=== PATIENT | male | born 1970 | race Caucasian/White ===

== ENCOUNTER 2018-03-19 20:40 | Emergency (ER) | payer SELFPAY ==
[~2018-03-19] VITALS: Ht 185.4 cm; Wt 98.9 kg
[2018-03-19 20:49] VITALS: BP 145/81
== END 2018-03-20 00:06 | disposition home or self-care (01) ==
LOC: ER 20:40
DX: J11.1 Influenza due to unidentified influenza virus with other respiratory manifestations (principal)

== ENCOUNTER 2019-01-12 20:04 | Inpatient (IN) | payer SELFPAY ==
[~2019-01-12] VITALS: Ht 182.9 cm; Wt 95.9 kg
[2019-01-12] MEDS ORDERED: SODIUM CHLORIDE 0.9% 1,000 ML IV ONE (20:19)
[2019-01-12 21:03] LABS: Basophils # (auto) 0.1 uL; Eosinophils # (auto) 0.2 uL; Eosinophils % (auto) 2.1 % (0.0-7.0); Hematocrit 49.7 % (41.0-53.0); Lymphocytes % (auto) 20.3 % (10.0-50.0); Mean Corpuscular Hemoglobin 27.7 pg (28.0-32.0); Mean Corpuscular Hgb Conc. 32.3 g/dL (32.0-36.0); Mean Corpuscular Volume 85.7 fL (80.0-100.0); Monocytes # (auto) 0.8 uL; Monocytes % (auto) 7.7 % (0.0-12.0); Neutrophils # (auto) 6.8 uL; Neutrophils % (auto) 68.9 % (37.0-80.0); Platelet Count (auto) 226 10^3/uL (140-450); White Blood Cell 9.9 10^3/uL (4.4-10.8)
[2019-01-12 21:11] LABS: Albumin 4.6 g/dL (3.4-5.0); Calcium 10.1 mg/dL (8.5-10.1); Potassium 3.9 mmol/L (3.5-5.1)
[2019-01-12 21:21] LABS: BUN/Creatinine Ratio 12.3
[2019-01-12] MEDS ORDERED: InsuLIN REG 1unit/0.01ml Soln (100units/ml) IV ONE (21:30)
[2019-01-12 22:12] LABS: Urine Bacteria NONE SEEN /hpf (None Seen); Urine Blood Negative /uL (Negative); Urine Specific Gravity 1.029 (1.001-1.035); Urine WBC 1 /hpf (0 - 3)
[2019-01-12] MEDS ORDERED: TEMAZEPAM 15 MG CAP PO PRN (22:45)
[2019-01-12] MEDS ORDERED: ONDANSETRON HCL 4 MG/2 ML VIAL IV PRN (22:45)
[2019-01-12] MEDS ORDERED: MORPHINE SULF INJ 2 MG/ML SYRINGE 1ML IV PRN (22:45)
[2019-01-12] MEDS ORDERED: DOCUSATE SOD 100 MG CAP PO PRN (22:45)
[2019-01-12] MEDS ORDERED: ACETAMINOPHEN 500 MG TAB PO PRN (22:45)
[2019-01-12] MEDS ORDERED: amLODIPine BESYLATE 5 MG TAB PO ONE (23:00)
[2019-01-12] MEDS ORDERED: DEXTROSE (50%) 50ML SYRG IV PRN (23:15)
[2019-01-13] MEDS: ACCU-CHEK COMFORT CURVE STRIP VI SCH ×5 (00:10→17:21)
[2019-01-13] MEDS: InsuLIN REG 1unit/0.01ml Soln (100units/ml) SC SCH ×5 (00:10→17:21)
--- NOTE | 2019-01-13 01:35 | NUR ---
Telemetry admit from ER Patient admitted to Telemetry unit and oriented to primary RN, unit, room, bed, and unit policies regarding patient care and visiting hours. Patient now on continuous telemetry monitoring, tele box # [id number] and telemetry reading on arrival to unit is sinus rhythm. Patient weighed by bedscale and encouraged to call if they need something. All questions and concerns addressed, patient verbalized understanding.
[2019-01-13] MEDS ORDERED: KETOROLAC TROMETH 30 MG/ML 1ML VIAL IV ONE (02:15)
[2019-01-13] MEDS ORDERED: AMLO5TAB15 PO (02:27)
[2019-01-13] MEDS ORDERED: SIMV10TA73 PO (02:27)
[2019-01-13 02:35] VITALS: BP 145/88
[2019-01-13 05:00] VITALS: BP 146/78
[2019-01-13 06:34] LABS: Basophils # (auto) 0 uL; Basophils % (auto) 0.6 % (0.0-2.0); Eosinophils # (auto) 0.3 uL; Eosinophils % (auto) 4.1 % (0.0-7.0); Hematocrit 42.8 % (41.0-53.0); Hemoglobin 14.5 g/dL (13.5-17.5); Lymphocytes # (auto) 2.2 uL; Lymphocytes % (auto) 28.1 % (10.0-50.0); Mean Corpuscular Hgb Conc. 33.9 g/dL (32.0-36.0); Mean Corpuscular Volume 82.8 fL (80.0-100.0); Monocytes # (auto) 0.7 uL; Monocytes % (auto) 8.2 % (0.0-12.0); Neutrophils # (auto) 4.7 uL; Nucleated Red Blood Cells % 0.1 %; Platelet Count (auto) 191 10^3/uL (140-450); Red Blood Cells 5.16 10^6/uL (4.5-5.90); Red Cell Distribution Width 12.5 % (11.8-14.3)
[2019-01-13 06:36] LABS: Calcium 8.2 mg/dL (8.5-10.1); Potassium 3.2 mmol/L (3.5-5.1)
[2019-01-13 06:38] LABS: BUN/Creatinine Ratio 13.9
[2019-01-13 09:00] VITALS: BP 146/95
[2019-01-13] MEDS ORDERED: PNEUMOCOCCAL VACC POLYS 25 MCG/0.5 ML VIAL IM SCH (09:00)
[2019-01-13] MEDS ORDERED: INFLUENZA QUAD 2019-2020 0.5ml SYRG IM SCH (09:00)
[2019-01-13] MEDS: PANTOPRAZOLE 40 MG TAB PO SCH (09:57)
[2019-01-13] MEDS ORDERED: amLODIPine BESYLATE 5 MG TAB PO SCH (10:00)
--- NOTE | 2019-01-13 11:30 | NUR ---
PT GIVEN DIABETIC EDUCATION POCKET, PT GIVEN EDUCATION REGARDING DIABETES. GIVEN CONTACT NUMBER FOR DIABETIC EDUCATION CLASS.
[2019-01-13] MEDS ORDERED: LISINOPRIL 10 MG TAB PO ONE (12:15)
[2019-01-13] MEDS ORDERED: DEXTROSE (50%) 50ML SYRG IV PRN (12:15)
--- NOTE | 2019-01-13 12:22 | NUR ---
pt seen by DR. Torres made aware of potassium 3.2, received order to give potassium 10meq PO one dose, order read back and verified.
[2019-01-13] MEDS ORDERED: POTASSIUM CHL 10 Meq TABLET PO ONE (12:30)
[2019-01-13 13:00] VITALS: BP 151/89
[2019-01-13 16:55] VITALS: BP 127/73
[2019-01-13] MEDS: glipiZIDE 5 MG TAB PO SCH (17:21)
[2019-01-13] MEDS: metFORMIN HYDROCHLORIDE 500 MG TAB PO SCH (17:48)
--- NOTE | 2019-01-13 19:23 | NUR ---
Opening Shift Note Assumed care of patient, awake and alert x 4. No S/S of distress/SOB. Bed is in lowest position and locked. Call light within reach. Board updated. Instructed on POC and to call for assist PRN, will continue to monitor for changes Q1hr and PRN.
[2019-01-14] MEDS: ACCU-CHEK COMFORT CURVE STRIP VI SCH ×3 (00:24→12:12)
[2019-01-14] MEDS: InsuLIN REG 1unit/0.01ml Soln (100units/ml) SC SCH ×3 (00:24→12:12)
[2019-01-14 05:00] VITALS: BP 146/62
[2019-01-14 06:04] LABS: BUN/Creatinine Ratio 14.1; Calcium 8.2 mg/dL (8.5-10.1); Potassium 3.6 mmol/L (3.5-5.1)
[2019-01-14 06:12] LABS: Cholesterol 153 mg/dL (< 200); HDL Cholesterol 30 mg/dL (40-59); LDL Cholesterol 97 mg/dL (< 100); Triglycerides 248 mg/dL (< 150)
[2019-01-14] MEDS: glipiZIDE 5 MG TAB PO SCH (06:27)
--- NOTE | 2019-01-14 08:00 | NUR ---
Opening Shift Note Assumed care of patient, awake and alert. No S/S of distress/SOB or pain. Instructed on POC and to call for assist PRN, and patient verbalized understanding. Will continue to monitor for changes Q1hr and PRN.
[2019-01-14 09:00] VITALS: BP 128/85
[2019-01-14] MEDS: PANTOPRAZOLE 40 MG TAB PO SCH (09:29)
[2019-01-14] MEDS: metFORMIN HYDROCHLORIDE 500 MG TAB PO SCH (09:32)
[2019-01-14] MEDS ORDERED: GLIP5TAB12 PO (09:42)
[2019-01-14] MEDS ORDERED: METF500T PO (09:42)
[2019-01-14] MEDS ORDERED: LISI10TA6 PO (09:42)
[2019-01-14] MEDS ORDERED: ATOR10TA52 PO (09:43)
[2019-01-14] MEDS ORDERED: LISINOPRIL 10 MG TAB PO SCH (10:00)
--- NOTE | 2019-01-14 11:00 | NUR ---
Dr. Torres, Hospitalist, at bedside. New orders received.
[2019-01-14 12:18] VITALS: BP 146/62
--- NOTE | 2019-01-14 13:27 | NUR ---
Discharge instructions given as ordered. Encourage to follow up with PMD as instructed. All questions and concerns addressed. Patient verbalized understanding. Medication reconciliation form completed and copy given to patient. IV removed with catheter intact, pressure dressing applied. Patient walked to vehicle with all personal belongings. No distress noted at time of departure.
== END 2019-01-14 13:00 | disposition home or self-care (01) | DRG 637 ==
LOC: ER 20:05 → TELE 20:06 → TELE-WESTW 23:33 → WEST WING 01-13 13:04
PROVIDERS: ADMIT Nurse Practitioner Family; ATTEND Internal Medicine
DX: E11.65 Type 2 diabetes mellitus with hyperglycemia (principal); N17.0 Acute kidney failure with tubular necrosis; E87.1 Hypo-osmolality and hyponatremia; E78.5 Hyperlipidemia, unspecified; E86.0 Dehydration; E87.6 Hypokalemia; I10 Essential (primary) hypertension; Z82.49 Family history of ischemic heart disease and other diseases of the circulatory system; Z83.3 Family history of diabetes mellitus; Z88.5 Allergy status to narcotic agent; Z88.1 Allergy status to other antibiotic agents
CPT/HCPCS: 36415; 36600; 71045; 80048; 80053; 80061; 81001; 82010; 82805; 82962; 83036; 83735; 85025; 93005; 94761; 96361; 96374; G0378; J1815; J1885

== ENCOUNTER 2024-01-21 09:34 | Observation (INO) | payer MEDICAID, OTHER ==
[~2024-01-21] VITALS: Ht 185.4 cm; Wt 93.0 kg
[~2024-01-21 09:34] MED LIST: AMLO1TAB22 PO; ATOR10TA52 PO; BUME1TAB3 PO; CARV3.1240 PO; DAPA1TAB4 PO; FURO40TA4 PO; GLIP5TAB21 PO; LISI10TA34 PO; LOSA-535 PO; METF-370 PO; METF500T PO; SIMV-268 PO; SPIR25TA8 PO
[2024-01-21 10:03] LABS: Basophils # (auto) 0.1 10 ^3/uL (0-0.2); Eosinophils # (auto) 0.2 10 ^3/uL (0-0.8); Monocytes # (auto) 0.7 10 ^3/uL (0-1.3)
[2024-01-21 10:06] LABS: Basophils % (auto) 0.6 % (0.0-2.0); Eosinophils % (auto) 2.3 % (0.0-7.0); Hematocrit 50.3 % (41.0-53.0); Hemoglobin 16.7 g/dL (13.5-17.5); Lymphocytes # (auto) 1.6 10 ^3/uL (0.4-5.4); Mean Corpuscular Hemoglobin 28.2 pg (28.0-32.0); Mean Corpuscular Hgb Conc. 33.2 g/dL (32.0-36.0); Monocytes % (auto) 7.3 % (0.0-12.0); Neutrophils # (auto) 7.5 10 ^3/uL (1.6-8.6); Neutrophils % (auto) 73.8 % (37.0-80.0); Nucleated Red Blood Cells % 0.1 %; Platelet Count (auto) 342 10^3/uL (140-450); Red Blood Cells 5.92 10^6/uL (4.5-5.90); White Blood Cell 10.1 10^3/uL (4.4-10.8)
[2024-01-21 10:42] LABS: INR 1.3 (0.9-1.15); Partial Thromboplastin Time 26.2 SEC (24.5-34.5); Prothrombin Time 13.5 sec (9.3-11.8)
[2024-01-21 10:51] VITALS: PULSE 84; RESP 18; O2SAT 95
[2024-01-21] MEDS: ASPirin 81 mg TAB PO SCH (10:57)
[2024-01-21 11:49] LABS: COVID19 ANTIGEN SOFIA FIA NEGATIVE (NEGATIVE)
[2024-01-21 12:49] LABS: Alanine Aminotransferase 54 U/L (7-40); Albumin 4.4 g/dL (3.2-4.8); Alkaline Phosphatase 91 U/L (46-116); Anion Gap 10 (5-15); Aspartate Aminotransferase 38 U/L (13-40); BUN/Creatinine Ratio 13.2 (10.0-20.0); Bilirubin, Total 1.3 mg/dL (0.2-1.0); Blood Urea Nitrogen 22 mg/dL (9-23); Calcium 9.3 mg/dL (8.7-10.4); Carbon Dioxide 29 mmol/L (20-31); Chloride 97 mmol/L (98-107); Cholesterol 193 mg/dL (< 200); Glucose 292 mg/dL (74-106); HDL Cholesterol 35 mg/dL (40-59); LDL Cholesterol 135 mg/dL (< 100); Magnesium 1.9 mg/dL (1.6-2.6); Sodium 136 mmol/L (136-145); Triglycerides 176 mg/dL (< 150)
[2024-01-21 12:50] LABS: Total Protein 7.2 g/dL (5.7-8.2)
[2024-01-21] MEDS: IOHEXOL 350 MG/ML 100ML IJ ONE (16:07)
[2024-01-21] MEDS ORDERED: HYDROcodone-ACET 5/325MG TAB PO PRN (16:30)
[2024-01-21] MEDS ORDERED: ACETAMINOPHEN 325 MG TAB PO PRN (16:30)
[2024-01-21] MEDS ORDERED: MORPHINE SULFATE INJ 2 MG/ml SYRG IV PRN ×2 (16:30)
[2024-01-21] MEDS: MAGNESIUM SULFATE 1GM/100ML 100 ML IV ONE (17:11)
[2024-01-21] MEDS: FUROSEMIDE 40 MG/4 ML VIAL IV SCH (18:00)
[2024-01-21] MEDS: NITROGLYCERIN 0.4 MG SL TAB SL PRN (19:33)
[2024-01-21 22:10] LABS: Magnesium 2.5 mg/dL (1.6-2.6)
[2024-01-21 22:12] LABS: Phosphorus 5.5 mg/dL (2.4-5.1)
[2024-01-21 23:25] VITALS: BP 145/89; PULSE 80; RESP 20; TEMP 98; O2SAT 97
[2024-01-21 23:30] LABS: Urine Bacteria None Seen /hpf (None Seen)
[2024-01-21 23:47] LABS: Protein, Urine 22.5 mg/dL (1-14)
[2024-01-21 23:50] LABS: Creatinine, Urine 52.82 mg/dL (30.0-125.0); Urine Protein/Creatinine Ratio 0.43
[2024-01-22] VITALS (8 sets, daily range): BP systolic 110–148; BP diastolic 72–99; PULSE 75–92; RESP 16–20; TEMP 97.6–98.6; O2SAT 91–98
[2024-01-22 00:16] LABS: Urine Blood Negative /uL (Negative); Urine Clarity Clear (Clear); Urine Color Light-Yellow (Yellow); Urine Protein, UAD TRACE (Negative); Urine Specific Gravity 1.023 (1.001-1.035); Urine Urobilinogen 2 mg/dL (Negative); Urine WBC 1 /hpf (0 - 3); Urine pH 6.5 (5.0-9.0)
[2024-01-22 06:17] LABS: Basophils # (auto) 0 10 ^3/uL (0-0.2); Basophils % (auto) 0.4 % (0.0-2.0); Eosinophils # (auto) 0.2 10 ^3/uL (0-0.8); Eosinophils % (auto) 2.8 % (0.0-7.0); Hematocrit 47.7 % (41.0-53.0); Hemoglobin 15.9 g/dL (13.5-17.5); Lymphocytes # (auto) 2.1 10 ^3/uL (0.4-5.4); Lymphocytes % (auto) 24.9 % (10.0-50.0); Mean Corpuscular Hemoglobin 28.1 pg (28.0-32.0); Mean Corpuscular Hgb Conc. 33.4 g/dL (32.0-36.0); Mean Corpuscular Volume 84.3 fL (80.0-100.0); Monocytes # (auto) 0.8 10 ^3/uL (0-1.3); Monocytes % (auto) 9.4 % (0.0-12.0); Neutrophils # (auto) 5.3 10 ^3/uL (1.6-8.6); Neutrophils % (auto) 62.5 % (37.0-80.0); Nucleated Red Blood Cells % 0.1 %; Platelet Count (auto) 299 10^3/uL (140-450); Red Blood Cells 5.66 10^6/uL (4.5-5.90); Red Cell Distribution Width 14.9 % (11.8-14.3); White Blood Cell 8.4 10^3/uL (4.4-10.8)
[2024-01-22 06:35] LABS: Alanine Aminotransferase 43 U/L (7-40); Alkaline Phosphatase 96 U/L (46-116); Anion Gap 6 (5-15); BUN/Creatinine Ratio 16.9 (10.0-20.0); Blood Urea Nitrogen 23 mg/dL (9-23); Calcium 9.2 mg/dL (8.7-10.4); Carbon Dioxide 34 mmol/L (20-31); Chloride 100 mmol/L (98-107); Potassium 3.4 mmol/L (3.5-5.1); Sodium 140 mmol/L (136-145)
[2024-01-22 06:36] LABS: Albumin 4.1 g/dL (3.2-4.8); Aspartate Aminotransferase 30 U/L (13-40); Bilirubin, Total 0.8 mg/dL (0.2-1.0); Total Protein 6.5 g/dL (5.7-8.2)
[2024-01-22 06:39] LABS: Glucose 165 mg/dL (74-106)
[2024-01-22] MEDS ORDERED: ASPirin 81 mg TAB PO SCH (10:00)
[2024-01-22] MEDS ORDERED: IOHEXOL 350 MG/ML 100ML IJ ONE (18:22)
[2024-01-22] MEDS ORDERED: FURO1TAB33 PO (20:54)
[2024-01-22] MEDS ORDERED: ASPI-325 PO (20:54)
[2024-01-22] MEDS: SODIUM CHLORIDE 0.9% 500 ML IV ONE (21:00)
[2024-01-23 01:00] VITALS: BP 141/94; PULSE 74; RESP 17; TEMP 97.5; O2SAT 99
[2024-01-23 03:25] VITALS: BP 141/94; PULSE 74; RESP 17; TEMP 97.5; O2SAT 99
[2024-01-23 05:00] VITALS: BP 112/69; PULSE 72; RESP 17; O2SAT 95
[2024-01-23 07:55] VITALS: PULSE 79
== END 2024-01-23 08:14 | disposition home or self-care (01) ==
LOC: ER 09:34 → TELE 16:27 → INTOOBSV 16:27 → TELE-E-ADS 23:25
PROVIDERS: ADMIT Student in an Organized Health Care Education/Training Program; ATTEND Student in an Organized Health Care Education/Training Program
DX: I13.0 Hypertensive heart and chronic kidney disease with heart failure and stage 1 through stage 4 chronic kidney disease, or unspecified chronic kidney disease (principal); Z20.822 Contact with and (suspected) exposure to COVID-19; E11.22 Type 2 diabetes mellitus with diabetic chronic kidney disease; N18.2 Chronic kidney disease, stage 2 (mild); I50.9 Heart failure, unspecified; N17.9 Acute kidney failure, unspecified; R06.02 Shortness of breath; E78.5 Hyperlipidemia, unspecified; R53.83 Other fatigue; I49.9 Cardiac arrhythmia, unspecified; N20.0 Calculus of kidney; R94.31 Abnormal electrocardiogram [ECG] [EKG]; R79.89 Other specified abnormal findings of blood chemistry; M79.602 Pain in left arm; E04.1 Nontoxic single thyroid nodule; R06.09 Other forms of dyspnea; Z88.5 Allergy status to narcotic agent; Z79.84 Long term (current) use of oral hypoglycemic drugs; Z79.899 Other long term (current) drug therapy
CPT/HCPCS: 36415; 71250; 71275; 76536; 76775; 80053; 80061; 81001; 82306; 82570; 83735; 83880; 83970; 84100; 84156; 84300; 84484; 85025; 85379; 85610; 85730; 87426; 93005; 93306; 96365; 96375; 96376; 99291; G0378; J1940; J3475; Q9967